=== PATIENT | male | born 1990 | race Two or more races ===

== ENCOUNTER 2018-05-28 15:18 | Emergency (ER) | payer BC ==
[2018-05-28 15:24] VITALS: BP 133/78
--- NOTE | 2018-05-28 15:59 | ER Document Report ---
HPI - HPI Time Seen by Provider: 05/28/18 15:27 Pain Level: Denies Notes: Patient is an otherwise healthy 27-year-old male presenting to the emergency department with complaints of diarrhea that is been going on for the last 5 days. Patient reports at least 8-10 episodes of diarrhea daily. He denies any vomiting, abdominal pain or fevers. Patient denies any sick contacts that he is aware of. - DERM Skin Color: Normal Past Medical History - General Information source: Patient - Social History Smoking Status: Never Smoker Family History: Reviewed & Not Pertinent Patient has suicidal ideation: No Patient has homicidal ideation: No - Medical History Medical History: Negative Renal/ Medical History: Denies: Hx Peritoneal Dialysis Surgical Hx: Negative - Immunizations Immunizations up to date: Yes Vertical Provider Document - CONSTITUTIONAL Notes: PHYSICAL EXAMINATION: GENERAL: Well-appearing, well-nourished and in no acute distress. HEAD: Atraumatic, normocephalic. EYES: Pupils equal round and reactive to light, extraocular movements intact, sclera anicteric, conjunctiva are normal. ENT: Nares patent, oropharynx clear without exudates. Moist mucous membranes. NECK: Normal range of motion, supple without lymphadenopathy LUNGS: Breath sounds clear to auscultation bilaterally and equal. No wheezes rales or rhonchi. HEART: Regular rate and rhythm without murmurs ABDOMEN: Soft, nontender, nondistended abdomen. No guarding, no rebound. No masses appreciated. Musculoskeletal: Normal range of motion, no pitting or edema. No cyanosis. NEUROLOGICAL: Cranial nerves grossly intact. Normal speech, normal gait. Normal sensory, motor exams PSYCH: Normal mood, normal affect. SKIN: Warm, Dry, normal turgor, no rashes or lesions noted. - INFECTION CONTROL TRAVEL OUTSIDE OF THE [place] IN LAST 30 DAYS: No Course - Re-evaluation Re-evalutation: Patient is nontoxic in appearance, healthy and all vital signs are within normal limits. Patient's abdominal assessment is benign. His abdomen is soft, nontender with no guarding and no rebound. Patient's only complaint is persistent diarrhea. Patient appears well-hydrated. Patient will give a stool sample and be discharged home on p.o. antibiotics. Patient verbalizes understanding of ED return precautions to include dehydration, development of vomiting or abdominal pain or development of fever. Patient stable at time of discharge. - Vital Signs Vital signs: Temp Pulse Resp BP Pulse Ox 98.1 F 86 18 133/78 H 97 05/28/18 15:23 05/28/18 15:23 05/28/18 15:23 05/28/18 15:23 05/28/18 15:23 Discharge - Discharge Clinical Impression: Diarrhea Qualifiers: Diarrhea type: unspecified type Qualified Code(s): R19.7 - Diarrhea, unspecified Condition: Stable Disposition: HOME, SELF-CARE Additional Instructions: Diarrhea Diarrhea means frequent, watery stools. There are many causes. Any problem that keeps the intestinal tract from absorbing water from the stool can lead to diarrhea. A sudden new diarrhea problem is usually caused by a virus, food sensitivity, toxic bacteria, or drugs. In this case, we expect the problem to go away soon. Testing is done only if you seem seriously ill from the diarrhea. If you have chronic diarrhea, or diarrhea that keeps coming back, we need to find out why. Chronic diarrhea can be due to inflammation of the bowels such as Crohn's disease or ulcerative colitis, food sensitivity such as intolerance to lactose or wheat protein, irritable bowel syndrome, and other problems. If your diarrhea is a significant problem but it's not clear why you have it, we'll refer you to a specialist for further testing. During an episode of diarrhea, drink small amounts (two to six ounces) of clear liquids (soft drinks, sport drinks, herb teas, broth, etc). Take fluids frequently to prevent dehydration. It's usually not a problem to take mild anti-diarrhea medication such as Kaopectate or Pepto-Bismol. As the diarrhea eases, advance to small amounts of bland food (mashed potato, toast) for 24 hours. Call the physician if blood appears in your vomit or stool, if vomiting lasts longer than 24 hours, if the abdominal pain worsens or becomes localized to one area, if you develop high fever, or if you become lightheaded and weak. Please take medications as prescribed. Purchase [id number] Imodium and take it as prescribed on the bottle. Please make sure to be drinking plenty of fluids. We will call you if there is any abnormality with the stool culture results. Return to the emergency department if you experience worsening symptoms such as development of abdominal pain, fever, blood in your stool or development of vomiting. Prescriptions: Ciprofloxacin HCl [Cipro 500 mg Tablet] 500 mg PO BID #10 tablet Metronidazole [Flagyl 500 mg Tablet] 500 mg PO Q6H #20 tablet Forms: Return to Work
== END 2018-05-28 16:07 | disposition home or self-care (01) ==
LOC: ER 15:18
DX: R19.7 Diarrhea, unspecified (principal)
CPT/HCPCS: 87045; 87177; 87205; 99283